=== PATIENT | female | born 1935 | race Caucasian/White ===

== ENCOUNTER → 2016-12-12 | Outpatient (CLI) | payer OTHER ==
[~2016-12-12] MED LIST: ACTOS15 MG PO; ADVAIR 250/501 DISK IH; ALEVE220 M2 PO; ALEVE220 MG PO; ALLOPURINOL100 MG PO; ATIVAN0.5 MG PO; BAYER CHEWABLE81 MG PO; CALCIUM 500 +1 EAC5 PO; CATAPRES0.1 MG PO; CLARITIN,ALAVAR10 MG PO; COSOPT EYE DROPS5 ML BOTH EYES; COSOPT EYE DROPS5 ML RIGHT EYE; CYMBALTA60 MG PO; DELTASONE20 M1 PO; DRONABINOL2.5 MG PO; ESCITALOPRAM OX10 MG PO; ESOMEPRAZOLE MA40 MG PO; FUROSEMIDE20 MG PO; GABAPENTIN100 MG PO; GLIPIZIDE XL5 MG PO; GLUCOTROL XL5 MG PO; IMODIUM MS REL1 EACH PO; KLOR-CON M2020 MEQ PO; LEVOFLOXACIN500 MG PO; LEXAPRO10 MG PO; LIDOCAINE20 MG/1 M5 PO; LISINOPRIL2.5 MG PO; LOPERAMIDE2 M1 PO; LOPERAMIDE2 MG PO; LOPRESSOR25 MG PO; LOVENOX40 MG/0.4 SC; MAG-OXIDE400 MG PO; MAGNESIUM OXID500 MG PO; MAGNESIUM400 M1 PO; MAGNESIUM500 MG PO; MARINOL2.5 M1 PO; MEGACE ES625 MG/5 M PO; MELATONIN10 MG PO; METOPROLOL TART25 MG PO; MORPHINE SULFAT15 MG PO; MS CONTIN,ORAMO15 M1 PO; MYCOSTATIN 100,60 ML PO; NEURONTIN100 MG PO; NEXIUM40 MG PO; ONDANSETRON HCL8 MG PO; OXAYDO5 MG PO; PERCOCET 5/31 TABLET PO; POTASSIUM CHLO20 ME1 PO; PRAVACHOL40 MG PO; PREDNISONE50 MG PO; PRILOSEC20 MG PO; PROAIR HFA8.5 GM IH; PROCHLORPERAZIN10 MG PO; PROMETHAZINE HC25 M1 PO; PROTONIX40 MG PO; PULMICORT FLEX90 MCG IH; RANITIDINE HCL300 MG PO; REMERON45 MG PO; SENNA S TABLET1 EACH PO; ST. JOSEPH ASPI81 MG PO; THERAGRAN1 TABLET PO; TOPAMAX25 MG PO; TOPROL XL25 MG PO; TRICOR145 MG PO; TYLENOL EXTRA500 MG PO; TYLENOL REGULA325 MG PO; TYLENOL SINUS1 EA15 PO; ULTRAM50 MG PO; VENTOLIN HFA18 GM IH; XALATAN2.5 ML BOTH EYES; ZOFRAN4 MG PO; [UNRECOGNIZED DRUG - OTHER] MM
== END | disposition home or self-care (01) ==
LOC: AMB 08:30
PROC: 0JPT0VZ Removal of Infusion Pump from Trunk Subcutaneous Tissue and Fascia, Open Approach (ICD-10-PCS; principal; 2016-12-12)
DX: Z45.1 Encounter for adjustment and management of infusion pump (principal); I87.8 Other specified disorders of veins; C85.90 Non-Hodgkin lymphoma, unspecified, unspecified site

== ENCOUNTER 2017-02-01 17:57 | Emergency (ER) | payer OTHER ==
[~2017-02-01] VITALS: Ht 167.6 cm; Wt 66.8 kg
[2017-02-01 18:56] LABS: HEMATOCRIT 35.2 % (36.0-46.0); MCH 30.2 PG (29.0-34.0); MCHC 33.2 G/DL (30.0-36.0); MEAN PLAT.VOLUME 10.2 uM^3 (9.5-12.4); PLATELET COUNT 112 K/uL (156-360); RBC DIS.WIDTH-CV 13.7 % (11.8-14.6); RBC DIS.WIDTH-SD 45.3 % (39-53); RED BLOOD COUNT 3.87 M/uL (3.80-5.20); WHITE BLOOD COUNT 5.6 K/uL (4.1-10.2)
[2017-02-01 19:26] LABS: CHLORIDE 103 mEq/L (99-109); POTASSIUM 3.7 mEq/L (3.7-5.4); SODIUM 138 mEq/L (136-147)
[2017-02-01 19:28] LABS: GLUCOSE 157 mg/dL (70-99)
[2017-02-01 19:29] LABS: ANION GAP 10 MEQ/L (2-14)
[2017-02-01 19:32] LABS: ADD MIUA? YES; BILIRUBIN NEGATIVE; BLOOD NEGATIVE; COLOR YELLOW ((YELLOW)); GLUCOSE (STRIP) NEGATIVE; KETONES NEGATIVE; LEUKOCYTES NEGATIVE; NITRITE NEGATIVE; PROTEIN (STRIP) NEGATIVE; UROBILINOGEN 0.2 MG/DL (0.2-1.0)
[2017-02-01 19:32] LABS: GFR ESTIMATE (CALCULATED) > 59 mL/min/
[2017-02-01 19:33] LABS: UREA NITROGEN (BUN) 22 mg/dL (9-23)
[2017-02-01 20:10] LABS: TROP-I INTERPRETATION NEGATIVE; TROPONIN-I < 0.01 ng/mL (0.0-0.30)
[2017-02-01 20:26] LABS: BACTERIA 1+ /HPF; CASTS NONE SEEN /LPF; CRYSTALS NONE SEEN; EPITHELIAL CELLS RARE /HPF; MUCUS RARE /LPF; RED BLOOD CELLS 0-5 /HPF (0-5); UCUL ADDED? NO; WHITE BLOOD CELLS 0-5 /HPF (0-5)
[2017-02-01 21:50] VITALS: BP 138/69
== END 2017-02-01 21:50 | disposition home or self-care (01) ==
LOC: EME 17:57
PROVIDERS: Physician Assistant
DX: S00.03XA Contusion of scalp, initial encounter (principal); R42 Dizziness and giddiness; W18.39XA Other fall on same level, initial encounter; Z91.81 History of falling; K21.9 Gastro-esophageal reflux disease without esophagitis; I10 Essential (primary) hypertension; E11.9 Type 2 diabetes mellitus without complications; Z87.891 Personal history of nicotine dependence
CPT/HCPCS: 70450; 70486; 71020; 80048; 81003; 84484; 85027; 93005; 99281; 99284

== ENCOUNTER 2017-02-21 11:51 | Emergency (ER) | payer OTHER ==
[~2017-02-21] VITALS: Ht 167.6 cm; Wt 66.8 kg
[2017-02-21] MEDS ORDERED: AMOXICILLIN500 MG PO (13:47)
[2017-02-21 14:08] VITALS: BP 152/81
== END 2017-02-21 14:20 | disposition home or self-care (01) ==
LOC: EME 11:51
PROC: 0CQ0XZZ Repair Upper Lip, External Approach (ICD-10-PCS; principal; 2017-02-21)
DX: S01.511A Laceration without foreign body of lip, initial encounter (principal); S09.90XA Unspecified injury of head, initial encounter; W06.XXXA Fall from bed, initial encounter; K21.9 Gastro-esophageal reflux disease without esophagitis; F32.9 Major depressive disorder, single episode, unspecified; Z87.891 Personal history of nicotine dependence; Z88.8 Allergy status to other drugs, medicaments and biological substances; Z85.72 Personal history of non-Hodgkin lymphomas
CPT/HCPCS: 70450; 70486; 99281; 99284

== ENCOUNTER 2017-09-07 07:58 | Day surgery (SDC) | payer OTHER, BC ==
[~2017-09-07] VITALS: Ht 167.6 cm; Wt 66.8 kg
[~2017-09-07 07:58] MED LIST changes: +AMOXICILLIN500 MG PO; +GABAPENTIN400 MG PO; +GABAPENTIN800 MG PO
== END 2017-09-07 09:30 | disposition home or self-care (01) ==
LOC: PAIN 07:58 → SDC 08:30 → PAIN 08:30
DX: M54.16 Radiculopathy, lumbar region (principal); M47.816 Spondylosis without myelopathy or radiculopathy, lumbar region; M51.36 Other intervertebral disc degeneration, lumbar region; M54.5 Low back pain; G89.29 Other chronic pain; M54.2 Cervicalgia; M25.511 Pain in right shoulder; D64.9 Anemia, unspecified; F41.9 Anxiety disorder, unspecified; Z87.891 Personal history of nicotine dependence; Z79.891 Long term (current) use of opiate analgesic; Z79.82 Long term (current) use of aspirin
CPT/HCPCS: J1100; J2250; J3010

== ENCOUNTER 2017-10-05 08:18 | Day surgery (SDC) | payer OTHER, BC ==
[~2017-10-05] VITALS: Ht 167.6 cm; Wt 66.8 kg
[~2017-10-05 08:18] MED LIST changes: +FLEXERIL5 MG PO; +FLORINEF ACETA0.1 MG PO; +MULTIPLE VITAM1 EACH PO
== END 2017-10-05 10:13 | disposition home or self-care (01) ==
LOC: PAIN 08:18 → SDC 08:45 → PAIN 10:13
DX: M54.16 Radiculopathy, lumbar region (principal); M51.36 Other intervertebral disc degeneration, lumbar region; M54.5 Low back pain; G89.29 Other chronic pain; M54.2 Cervicalgia; M25.511 Pain in right shoulder; D64.9 Anemia, unspecified; Z87.891 Personal history of nicotine dependence; Z79.82 Long term (current) use of aspirin; Z79.891 Long term (current) use of opiate analgesic; Z88.8 Allergy status to other drugs, medicaments and biological substances
CPT/HCPCS: J1100

== ENCOUNTER 2017-12-31 08:20 | Day surgery (SDC) | payer OTHER, BC ==
[~2017-12-31] VITALS: Ht 167.6 cm; Wt 68.0 kg
[2017-12-31] MEDS ORDERED: TYLENOL ARTHRI650 MG PO (08:51)
[2017-12-31] MEDS ORDERED: DILAUDID2 MG PO (08:56)
== END 2017-12-31 10:45 | disposition home or self-care (01) ==
LOC: PAIN 08:20 → SDC 08:45 → PAIN 10:45
DX: M54.16 Radiculopathy, lumbar region (principal); G89.29 Other chronic pain; C85.10 Unspecified B-cell lymphoma, unspecified site; D64.9 Anemia, unspecified; E11.40 Type 2 diabetes mellitus with diabetic neuropathy, unspecified; I10 Essential (primary) hypertension; E78.5 Hyperlipidemia, unspecified; J84.10 Pulmonary fibrosis, unspecified; Z85.828 Personal history of other malignant neoplasm of skin; Z87.891 Personal history of nicotine dependence; Z79.82 Long term (current) use of aspirin; Z88.8 Allergy status to other drugs, medicaments and biological substances
CPT/HCPCS: J1100; J2250

== ENCOUNTER 2018-02-10 06:48 | Day surgery (SDC) | payer OTHER, BC ==
[~2018-02-10] VITALS: Ht 167.6 cm; Wt 65.8 kg
[~2018-02-10 06:48] MED LIST changes: +DILAUDID2 MG PO; +SINGULAIR10 MG PO; +TYLENOL ARTHRI650 MG PO; +ZESTRIL10 MG PO
[2018-02-10 07:30] VITALS: BP 200/89
[2018-02-10 07:53] VITALS: BP 165/78
[2018-02-10 13:29] VITALS: BP 129/82
[2018-02-10 19:03] VITALS: BP 132/58
[2018-02-10 20:00] VITALS: BP 130/62
[2018-02-10 23:10] VITALS: BP 139/73
[2018-02-11 03:41] VITALS: BP 143/72
[2018-02-11 04:00] VITALS: BP 139/66
[2018-02-11 08:04] VITALS: BP 147/79
[2018-02-11] MEDS ORDERED: HYDROCODON-ACE1 EAC7 PO (10:29)
== END 2018-02-11 11:02 | disposition home or self-care (01) ==
LOC: SDC 06:48 → 2SOUTH 11:25 → 2EAST 11:25 → SDC 11:57 → ENRESERV 12:58 → 2EAST 13:45 → SDC 15:18 → 2EAST 02-11 11:02
PROC: 00NY0ZZ Release Lumbar Spinal Cord, Open Approach (ICD-10-PCS; principal; 2018-02-10)
DX: M48.062 Spinal stenosis, lumbar region with neurogenic claudication (principal); M51.16 Intervertebral disc disorders with radiculopathy, lumbar region; M43.16 Spondylolisthesis, lumbar region; Z98.1 Arthrodesis status; E11.40 Type 2 diabetes mellitus with diabetic neuropathy, unspecified; K21.9 Gastro-esophageal reflux disease without esophagitis; I10 Essential (primary) hypertension; E78.5 Hyperlipidemia, unspecified; M81.0 Age-related osteoporosis without current pathological fracture; J45.909 Unspecified asthma, uncomplicated; Z88.8 Allergy status to other drugs, medicaments and biological substances; Z79.82 Long term (current) use of aspirin; Z87.891 Personal history of nicotine dependence
CPT/HCPCS: 72020; 76000; G0378; J0131; J0690; J1100; J1170; J2405; J2710; J2930; J3010; J3480; J7120; J7643; S0020